=== PATIENT | female | born 1955 | race Caucasian/White ===

== ENCOUNTER 2016-07-17 05:52 | Inpatient (IN) | payer OTHER ==
[2016-07-14 09:24] LABS: HEMOGLOBIN 13.2 g/dL (11.7-16.4)
[2016-07-14 09:37] LABS: ASPARTATE AMINO TRANSFERASE 66 U/L (15-37); BLOOD UREA NITROGEN 12 mg/dL (7-18)
[~2016-07-17] VITALS: Ht 162.6 cm; Wt 105.8 kg
[2016-07-17] VITALS (8 sets, daily range): BP systolic 83–136; BP diastolic 51–86
[~2016-07-17 05:52] MED LIST: AMIT10TA PO; ASPI-621 PO; ATEN50TA41 PO; ATOR40TA78 PO; CEFD300C2 PO; CLOP75TA22 PO; DAPA5TAB PO; GABA600T2 PO; HEPARIN 1,000 UNITS/ML, 30ML ONE; HYDR-3240 PO; HYDR-3241 PO; IBUP-1222 PO; LOSA50TA6 PO; METF10002 PO; SITA100T PO; VALS320T2 PO; VARE1TAB21 PO
[2016-07-17] MEDS ORDERED: LACTATED RINGERS 1,000 ML IV SCH (06:14)
[2016-07-17] MEDS ORDERED: LIDOCAINE 1%, 2ML SQ PRN (06:30)
[2016-07-17] MEDS ORDERED: VANCOMYCIN 1,400 MG in SODIUM CHLORIDE 0.9% 250 ML IV ONE (07:00)
[2016-07-17] MEDS ORDERED: FENTANYL PF 250 MCG/5ML ONE ×2 (07:08→07:09)
[2016-07-17] MEDS ORDERED: MIDAZOLAM 1 MG/ML, 2ML ONE (07:09)
[2016-07-17] MEDS ORDERED: HEPARIN 1,000 UNITS/ML, 10ML ONE ×2 (07:22→10:11)
[2016-07-17] MEDS ORDERED: PROTAMINE SULFATE 10 MG/ML, 5ML ONE ×2 (07:22→07:59)
[2016-07-17] MEDS ORDERED: BACITRACIN 50,000 UNIT ONE (07:23)
[2016-07-17] MEDS ORDERED: THROMBIN 20,000 UNIT VIAL TP ONE (07:23)
[2016-07-17] MEDS ORDERED: ONDANSETRON 2MG/ML, 2ML ONE (07:42)
[2016-07-17] MEDS ORDERED: PROPOFOL 10 MG/ML, 50ML ONE (07:42)
[2016-07-17] MEDS ORDERED: DEXAMETHASONE 4 MG/ML, 5ML ONE (07:42)
[2016-07-17] MEDS ORDERED: GLYCOPYRROLATE 0.2MG/1ML ONE (07:42)
[2016-07-17] MEDS ORDERED: NEOSTIGMINE 1 MG/ML, 10ML ONE (07:42)
[2016-07-17] MEDS ORDERED: SODIUM BICARB 8.4%, 50ML SYRINGE ONE (07:42)
[2016-07-17] MEDS ORDERED: ROCURONIUM 10 MG/ML ONE (07:42)
[2016-07-17] MEDS ORDERED: INSULIN SINGLE DOSE, ER SQ-INSULIN ONE (07:42)
[2016-07-17] MEDS ORDERED: ALBUMIN HUMAN 5%, 25G/500ML ONE (07:42)
[2016-07-17] MEDS ORDERED: LIDOCAINE/MPF 2%-EPI 1:200K, 20 ML ONE (07:59)
[2016-07-17] MEDS ORDERED: REGULAR INSULIN 62.5 UNITS in SODIUM CHLORIDE 0.9% 249.375 ML IV PRN (09:00)
[2016-07-17] MEDS ORDERED: HYDROmorphone 1 MG/ML, 1ML ONE (09:14)
[2016-07-17] MEDS ORDERED: POTASSIUM PHOS 4.4 MEQ/ML IV STA (10:48)
[2016-07-17] MEDS ORDERED: MEPERIDINE/PF 25MG/0.5ML IVPush PRN (11:00)
[2016-07-17] MEDS ORDERED: PROMETHAZINE 25 MG/ML, 1ML IV PRN (11:00)
[2016-07-17] MEDS ORDERED: FENTANYL PF 100 MCG/2ML IV PRN (11:00)
[2016-07-17] MEDS ORDERED: ALBUTEROL SULFATE 2.5 MG/3 ML NPPB PRN (11:00)
[2016-07-17] MEDS ORDERED: LABETALOL 5MG/ML, 20ML IV PRN (11:00)
[2016-07-17] MEDS ORDERED: ONDANSETRON 2MG/ML, 2ML IVPush PRN (11:00)
[2016-07-17] MEDS ORDERED: OXYcodone 5 MG/5 ML ORAL.SOL UDC PO PRN (11:00)
[2016-07-17] MEDS ORDERED: HYDROmorphone 1 MG/ML, 1ML IV PRN (11:00)
[2016-07-17] MEDS ORDERED: ACETAMINOPHEN 325 MG TABLET PO PRN (11:00)
[2016-07-17] MEDS ORDERED: MIDAZOLAM 1 MG/ML, 2ML IV PRN (11:00)
[2016-07-17] MEDS ORDERED: hydrALAzine 20 MG/ML, 1ML IV PRN ×2 (11:00→16:00)
[2016-07-17] MEDS ORDERED: POTASSIUM PHOSPHATE IV ONE (11:30)
[2016-07-17] MEDS ORDERED: SODIUM CHLORIDE 0.9% IV ONE (11:30)
[2016-07-17] MEDS: BUPIVACAINE/PF 0.5%, 30ML 62.5 ML in SODIUM CHLORIDE 0.9% 187.5 ML EPIDCONT SCH (11:45)
[2016-07-17] MEDS ORDERED: HEPARIN 1,000 UNITS/ML, 30ML ONE (11:50)
[2016-07-17] MEDS: LACTATED RINGERS 1,000 ML IV SCH (16:00)
[2016-07-17] MEDS ORDERED: LABETALOL 5MG/ML, 20ML IVPush PRN ×2 (16:00)
[2016-07-17 16:17] LABS: HEMOGLOBIN 11.5 g/dL (11.7-16.4)
[2016-07-17] MEDS: ENALAPRILAT 1.25 MG/ML, 2ML IV SCH ×2 (16:17→22:05)
[2016-07-17 16:21] LABS: BLOOD UREA NITROGEN 7 mg/dL (7-18)
[2016-07-17] MEDS ORDERED: NALBUPHINE 10 MG/ML, 1ML IV PRN (16:30)
[2016-07-17] MEDS ORDERED: NALOXONE 0.4 MG/ML, 1ML IV PRN ×2 (16:30)
[2016-07-17] MEDS ORDERED: METOCLOPRAMIDE 5 MG/ML, 2ML IV PRN (16:30)
[2016-07-17] MEDS ORDERED: FENTANYL PF 100 MCG/2ML EPIDPUSH PRN (16:30)
[2016-07-17] MEDS ORDERED: HYDROmorphone 1 MG/ML, 1ML EPIDPUSH SCH (16:30)
[2016-07-17] MEDS ORDERED: EPHEDRINE 50 MG/ML, 1ML IVPush PRN (16:30)
[2016-07-17] MEDS ORDERED: DO NOT GIVE MC SCH (16:30)
[2016-07-17] MEDS ORDERED: DO NOT GIVE XX SCH (16:30)
[2016-07-17] MEDS: HYDROmorphone 1 MG/ML, 1ML EPIDPUSH SCH (17:04)
[2016-07-17] MEDS: PIPERACILLIN/TAZO/PMX 3.375GM 50 ML IV SCH (17:48)
[2016-07-17] MEDS: HEPARIN 5,000 UNITS/ML, 1ML SQ SCH (18:11)
[2016-07-17] MEDS: METOPROLOL 1 MG/ML, 5ML IVPush SCH ×2 (19:45→23:54)
[2016-07-17] MEDS ORDERED: VANCOMYCIN 1,300 MG in SODIUM CHLORIDE 0.9% 250 ML IV ONE (20:00)
[2016-07-17] MEDS ORDERED: LACTATED RINGERS 500 ML IVBOLUS ONE (21:00)
[2016-07-17] MEDS: INSULIN REGULAR, HUMAN 100 UNITS/ML, 3ML MEDIUM DOSE SS SQ-INSULIN SCH (22:04)
[2016-07-18] VITALS (9 sets, daily range): BP systolic 90–114; BP diastolic 57–75
[2016-07-18] MEDS ORDERED: LACTATED RINGERS 500 ML IVBOLUS ONE (00:30)
[2016-07-18] MEDS ORDERED: SODIUM CHLORIDE 0.9% 1,000ML IVBOLUS ONE (00:30)
[2016-07-18] MEDS: PIPERACILLIN/TAZO/PMX 3.375GM 50 ML IV SCH ×4 (00:36→18:14)
[2016-07-18] MEDS: LACTATED RINGERS 1,000 ML IV SCH ×3 (01:36→17:19)
[2016-07-18 03:37] LABS: BLOOD UREA NITROGEN 12 mg/dL (7-18)
[2016-07-18] MEDS: ENALAPRILAT 1.25 MG/ML, 2ML IV SCH ×4 (03:44→22:53)
[2016-07-18] MEDS: HYDROmorphone 1 MG/ML, 1ML EPIDPUSH SCH ×2 (05:14→17:38)
[2016-07-18] MEDS: METOPROLOL 1 MG/ML, 5ML IVPush SCH ×3 (06:07→18:00)
[2016-07-18] MEDS: HEPARIN 5,000 UNITS/ML, 1ML SQ SCH ×2 (06:08→18:15)
[2016-07-18] MEDS: INSULIN REGULAR, HUMAN 100 UNITS/ML, 3ML MEDIUM DOSE SS SQ-INSULIN SCH (07:00)
[2016-07-18] MEDS: INSULIN REGULAR 100 UNITS/ML, 3ML VIAL SQ-INSULIN SCH ×3 (09:25→21:29)
[2016-07-18] MEDS ORDERED: SODIUM CHLORIDE 0.9%, 500ML IVBOLUS ONE (11:00)
[2016-07-18] MEDS: BUPIVACAINE/PF 0.5%, 30ML 62.5 ML in SODIUM CHLORIDE 0.9% 187.5 ML EPIDCONT SCH (11:52)
[2016-07-19] VITALS (7 sets, daily range): BP systolic 93–136; BP diastolic 61–82
[2016-07-19] MEDS: PIPERACILLIN/TAZO/PMX 3.375GM 50 ML IV SCH ×3 (00:58→12:45)
[2016-07-19] MEDS: LACTATED RINGERS 1,000 ML IV SCH ×2 (01:49→10:14)
[2016-07-19] MEDS: ENALAPRILAT 1.25 MG/ML, 2ML IV SCH ×2 (04:54→10:00)
[2016-07-19] MEDS: INSULIN REGULAR 100 UNITS/ML, 3ML VIAL SQ-INSULIN SCH ×4 (04:55→23:25)
[2016-07-19] MEDS: HYDROmorphone 1 MG/ML, 1ML EPIDPUSH SCH (04:55)
[2016-07-19] MEDS: METOPROLOL 1 MG/ML, 5ML IVPush SCH ×3 (06:00→12:45)
[2016-07-19 06:21] LABS: HEMOGLOBIN 8.9 g/dL (11.7-16.4)
[2016-07-19] MEDS: HEPARIN 5,000 UNITS/ML, 1ML SQ SCH ×2 (06:32→18:30)
[2016-07-19 07:01] LABS: BLOOD UREA NITROGEN 22 mg/dL (7-18)
[2016-07-19] MEDS ORDERED: BUPIVACAINE/PF 0.5%, 30ML 62.5 ML in SODIUM CHLORIDE 0.9% 187.5 ML EPIDCONT SCH (12:00)
[2016-07-19 13:19] LABS: HIT LOT CART23704/KIT23705
[2016-07-19] MEDS ORDERED: SODIUM CHLORIDE 0.9% 1,000 ML IV SCH (13:30)
[2016-07-19 14:29] LABS: HIT OBC PASS; HIT RESULT NEGATIVE (NEGATIVE)
[2016-07-19] MEDS: SODIUM BICARB IV SCH (18:27)
[2016-07-19] MEDS: POTASSIUM CHLORIDE IV SCH (18:27)
[2016-07-19] MEDS: [UNRECOGNIZED DRUG - OTHER] IV SCH (18:27)
[2016-07-20 03:51] VITALS: BP 145/90
[2016-07-20] MEDS: [UNRECOGNIZED DRUG - OTHER] IV SCH ×2 (04:36→16:25)
[2016-07-20] MEDS: SODIUM BICARB IV SCH ×2 (04:36→16:25)
[2016-07-20] MEDS: POTASSIUM CHLORIDE IV SCH ×2 (04:36→16:25)
[2016-07-20] MEDS: INSULIN REGULAR 100 UNITS/ML, 3ML VIAL SQ-INSULIN SCH ×4 (04:37→22:10)
[2016-07-20 06:07] LABS: HEMOGLOBIN 10.4 g/dL (11.7-16.4)
[2016-07-20 06:26] LABS: BLOOD UREA NITROGEN 24 mg/dL (7-18)
[2016-07-20] MEDS: HEPARIN 5,000 UNITS/ML, 1ML SQ SCH ×2 (06:41→18:28)
[2016-07-20 07:46] VITALS: BP 143/91
[2016-07-20 14:00] VITALS: BP 161/94
[2016-07-20] MEDS: ONDANSETRON 2MG/ML, 2ML IV PRN (18:28)
[2016-07-20 19:10] VITALS: BP 158/97
[2016-07-20] MEDS: ATORVASTATIN 40 MG TABLET PO SCH (22:03)
[2016-07-21] MEDS: ONDANSETRON 2MG/ML, 2ML IV PRN (00:01)
[2016-07-21] MEDS: [UNRECOGNIZED DRUG - OTHER] IV SCH (03:05)
[2016-07-21] MEDS: SODIUM BICARB IV SCH (03:05)
[2016-07-21] MEDS: POTASSIUM CHLORIDE IV SCH (03:05)
[2016-07-21] MEDS: INSULIN REGULAR 100 UNITS/ML, 3ML VIAL SQ-INSULIN SCH ×4 (03:12→21:09)
[2016-07-21 05:19] LABS: HEMOGLOBIN 10.5 g/dL (11.7-16.4)
[2016-07-21 05:23] LABS: BLOOD UREA NITROGEN 25 mg/dL (7-18)
[2016-07-21 05:36] VITALS: BP 153/87
[2016-07-21] MEDS: ASPIRIN 81 MG TABLET EC PO SCH (05:38)
[2016-07-21] MEDS: ATENOLOL 50 MG TABLET PO SCH (05:38)
[2016-07-21] MEDS: HEPARIN 5,000 UNITS/ML, 1ML SQ SCH ×2 (05:38→17:31)
[2016-07-21 06:59] VITALS: BP 150/91
[2016-07-21] MEDS: CLOPIDOGREL 75 MG TABLET PO SCH (09:54)
[2016-07-21 13:29] VITALS: BP 147/83
[2016-07-21] MEDS: HYDROcodone/APAP 5/325 TABLET PO PRN (17:31)
[2016-07-21 19:46] VITALS: BP 134/84
[2016-07-21] MEDS: ATORVASTATIN 40 MG TABLET PO SCH (20:40)
[2016-07-21] MEDS: SENNA/DOCUSATE TABLET PO SCH (21:00)
[2016-07-22 03:30] VITALS: BP 129/82
[2016-07-22 05:23] LABS: HEMOGLOBIN 10.3 g/dL (11.7-16.4)
[2016-07-22 05:38] LABS: BLOOD UREA NITROGEN 25 mg/dL (7-18)
[2016-07-22] MEDS: ATENOLOL 50 MG TABLET PO SCH (06:06)
[2016-07-22] MEDS: HEPARIN 5,000 UNITS/ML, 1ML SQ SCH (06:07)
[2016-07-22] MEDS: ASPIRIN 81 MG TABLET EC PO SCH (06:07)
[2016-07-22 07:30] VITALS: BP 142/89
[2016-07-22] MEDS: INSULIN REGULAR 100 UNITS/ML, 3ML VIAL SQ-INSULIN SCH ×2 (07:50→12:15)
[2016-07-22] MEDS: CLOPIDOGREL 75 MG TABLET PO SCH (07:50)
[2016-07-22] MEDS: SENNA/DOCUSATE TABLET PO SCH (09:00)
[2016-07-22] MEDS: HYDROcodone/APAP 5/325 TABLET PO PRN (11:21)
[2016-07-22 13:20] VITALS: BP 143/91
[2016-07-22] MEDS ORDERED: HYDR-3241 PO (14:25)
[2016-07-22] MEDS ORDERED: CLOP75TA22 PO (14:27)
[2016-07-22] MEDS ORDERED: SENN-25 PO (14:27)
== END 2016-07-22 15:25 | disposition home or self-care (01) | DRG 269 ==
LOC: ORIP 05:52 → 4NOR 15:06 → 4EST 18:36 → 4NOR 07-18 12:54
PROVIDERS: ADMIT Surgery; ATTEND Surgery
PROC: 04C00ZZ Extirpation of Matter from Abdominal Aorta, Open Approach (ICD-10-PCS; 2016-07-17)
PROC: 04CL0ZZ Extirpation of Matter from Left Femoral Artery, Open Approach (ICD-10-PCS; 2016-07-17)
PROC: 04PY0JZ Removal of Synthetic Substitute from Lower Artery, Open Approach (ICD-10-PCS; 2016-07-17)
PROC: 04100JK Bypass Abdominal Aorta to Bilateral Femoral Arteries with Synthetic Substitute, Open Approach (ICD-10-PCS; principal; 2016-07-17 07:30)
PROC: 30233N1 Transfusion of Nonautologous Red Blood Cells into Peripheral Vein, Percutaneous Approach (ICD-10-PCS; 2016-07-19)
PROC: 0T9B70Z Drainage of Bladder with Drainage Device, Via Natural or Artificial Opening (ICD-10-PCS; 2016-07-19)
DX: T82.9XXA Unspecified complication of cardiac and vascular prosthetic device, implant and graft, initial encounter (principal); I74.09 Other arterial embolism and thrombosis of abdominal aorta; I74.5 Embolism and thrombosis of iliac artery; E87.2 Acidosis; N17.9 Acute kidney failure, unspecified; N39.0 Urinary tract infection, site not specified; Z68.41 Body mass index [BMI] 40.0-44.9, adult; D64.9 Anemia, unspecified; D69.6 Thrombocytopenia, unspecified; E66.9 Obesity, unspecified; E11.51 Type 2 diabetes mellitus with diabetic peripheral angiopathy without gangrene; I95.9 Hypotension, unspecified; E78.5 Hyperlipidemia, unspecified; I10 Essential (primary) hypertension; Z82.49 Family history of ischemic heart disease and other diseases of the circulatory system; Z87.891 Personal history of nicotine dependence; Z83.3 Family history of diabetes mellitus; Z91.018 Allergy to other foods
CPT/HCPCS: 36415; 74000; 76770; 80048; 80053; 81001; 82330; 82550; 82570; 82803; 82947; 82962; 83615; 84132; 84156; 84295; 84300; 85014; 85025; 86022; 86850; 86900; 86923; 87077; 87086; 87186; 93005; C1768; J1100; J1170; J1644; J1815; J2250; J2270; J2405; J2543; J2704; J2710; J2720; J3010; J3370; J3480; J3490; J7120; P9045; C1765; J7030; J7040; J7050; P9016

== ENCOUNTER 2016-08-08 14:19 | Inpatient (IN) | payer OTHER ==
[~2016-08-08] VITALS: Ht 162.6 cm; Wt 87.4 kg
[~2016-08-08 14:19] MED LIST changes: -CEFD300C2 PO; +CEFD300C37 PO; -HEPARIN 1,000 UNITS/ML, 30ML ONE; +SENN-25 PO
[2016-08-08] MEDS ORDERED: SODIUM CHLORIDE 0.9% 1,000 ML IV ONE (15:40)
[2016-08-08] MEDS ORDERED: MORPHINE SULFATE 4 MG/ML, 1ML IV PRN (16:00)
[2016-08-08] MEDS ORDERED: SODIUM CHLORIDE FLUSH 10ML SYR IVF ONE (16:00)
[2016-08-08] MEDS ORDERED: AMPICILLIN/SULBACTAM 3 GM in SODIUM CHLORIDE 0.9% 100 ML IVPB ONE (16:00)
[2016-08-08] MEDS ORDERED: ONDANSETRON 2MG/ML, 2ML IVPush ONE (16:00)
[2016-08-08 16:28] LABS: ASPARTATE AMINO TRANSFERASE 43 U/L (15-37); BLOOD UREA NITROGEN 12 mg/dL (7-18)
[2016-08-08] MEDS ORDERED: DULA0.75 SQ (16:36)
[2016-08-08] MEDS ORDERED: ATEN50TA41 PO (16:36)
[2016-08-08 16:58] LABS: DIFF TOTAL CELLS COUNTED 100 CELL DIFF
[2016-08-08] MEDS ORDERED: VANCOMYCIN PER PHARMACY MC ONE (17:00)
[2016-08-08] MEDS ORDERED: VANCOMYCIN 1,400 MG in SODIUM CHLORIDE 0.9% 250 ML IV ONE (17:00)
[2016-08-08] MEDS ORDERED: SODIUM CHLORIDE FLUSH 10ML SYR IVF PRN (17:00)
[2016-08-08 17:06] LABS: ANISOCYTOSIS 1+; POIKILOCYTOSIS 1+; POLYCHROMASIA 1+
[2016-08-08 17:07] LABS: LARGE PLATELETS 1+; VERIFY COUNTS? YES
[2016-08-08] MEDS ORDERED: ACETAMINOPHEN 325 MG TABLET PO PRN (18:00)
[2016-08-08] MEDS ORDERED: POLYETHYLENE GLYCOL 17 GM PACKET PO PRN (18:00)
[2016-08-08] MEDS ORDERED: BISACODYL 10 MG SUPP PR PRN (18:00)
[2016-08-08] MEDS ORDERED: ONDANSETRON 2MG/ML, 2ML IVP PRN (18:00)
[2016-08-08] MEDS ORDERED: ZOLPIDEM 5MG TABLET PO PRN (18:00)
[2016-08-08] MEDS ORDERED: DOCUSATE 100 MG CAPSULE PO PRN (18:00)
[2016-08-08] MEDS: LACTATED RINGERS 1,000 ML IV SCH (18:05)
[2016-08-08 20:00] VITALS: BP 152/81
[2016-08-08 20:32] LABS: PATH.CAST-FLAG NOT PRESENT; SPERM-FLAG NOT PRESENT; SRC-FLAG NOT PRESENT; XTAL-FLAG NOT PRESENT; YLC-FLAG NOT PRESENT
[2016-08-08] MEDS: ATORVASTATIN 40 MG TABLET PO SCH (21:00)
[2016-08-08] MEDS ORDERED: ATENOLOL 50 MG TABLET PO SCH (21:00)
[2016-08-08] MEDS: SENNA/DOCUSATE TABLET PO SCH (21:00)
[2016-08-08] MEDS: AMITRIPTYLINE 10 MG TABLET PO SCH (22:30)
[2016-08-08] MEDS: INSULIN REGULAR 100 UNITS/ML, 3ML VIAL SQ-INSULIN SCH (22:45)
[2016-08-08] MEDS: CEFTAROLINE 600 MG in SODIUM CHLORIDE 0.9% 100 ML IV SCH (23:00)
[2016-08-09 03:39] VITALS: BP 154/84
[2016-08-09] MEDS: LACTATED RINGERS 1,000 ML IV SCH (03:46)
[2016-08-09 06:21] LABS: BLOOD UREA NITROGEN 9 mg/dL (7-18)
[2016-08-09 06:41] VITALS: BP 149/82
[2016-08-09] MEDS ORDERED: CLOPIDOGREL 75 MG TABLET PO SCH (09:00)
[2016-08-09] MEDS: SENNA/DOCUSATE TABLET PO SCH ×2 (09:00→20:13)
[2016-08-09] MEDS ORDERED: ASPIRIN 81 MG TABLET EC PO SCH (09:00)
[2016-08-09] MEDS: ATENOLOL 50 MG TABLET PO SCH (09:40)
[2016-08-09] MEDS: INSULIN REGULAR 100 UNITS/ML, 3ML VIAL SQ-INSULIN SCH ×4 (09:41→20:35)
[2016-08-09] MEDS: MORPHINE SULFATE 4 MG/ML, 1ML IVPush PRN (10:23)
[2016-08-09] MEDS: POTASSIUM CHLORIDE 20 MEQ in LACTATED RINGERS 1,000 ML IV SCH ×2 (10:50→20:13)
[2016-08-09] MEDS: CEFTAROLINE 600 MG in SODIUM CHLORIDE 0.9% 100 ML IV SCH ×2 (10:51→23:28)
[2016-08-09] MEDS ORDERED: HEPARIN 5,000 UNITS/ML, 1ML ONE (12:43)
[2016-08-09] MEDS ORDERED: HEPARIN 1,000 UNITS/ML, 30ML ONE (12:43)
[2016-08-09] MEDS ORDERED: BACITRACIN 50,000 UNIT ONE (12:44)
[2016-08-09] MEDS ORDERED: PROTAMINE SULFATE 10 MG/ML, 5ML ONE (12:44)
[2016-08-09] MEDS ORDERED: BUPIVACAINE/PF-EPI 0.25% 1:200K ONE (12:44)
[2016-08-09] MEDS ORDERED: THROMBIN 20,000 UNIT VIAL TP ONE (12:44)
[2016-08-09] MEDS ORDERED: FENTANYL PF 250 MCG/5ML ONE (13:45)
[2016-08-09] MEDS ORDERED: MIDAZOLAM 1 MG/ML, 2ML ONE (13:46)
[2016-08-09] MEDS ORDERED: HYDROmorphone 1 MG/ML, 1ML IV PRN (14:00)
[2016-08-09] MEDS ORDERED: OXYcodone 5 MG/5 ML ORAL.SOL UDC PO PRN (14:00)
[2016-08-09] MEDS ORDERED: MEPERIDINE/PF 25MG/0.5ML IVPush PRN (14:00)
[2016-08-09] MEDS ORDERED: ACETAMINOPHEN 325 MG TABLET PO PRN (14:00)
[2016-08-09] MEDS ORDERED: hydrALAzine 20 MG/ML, 1ML IV PRN (14:00)
[2016-08-09] MEDS ORDERED: LABETALOL 5MG/ML, 20ML IV PRN (14:00)
[2016-08-09] MEDS ORDERED: PROMETHAZINE 25 MG/ML, 1ML IV PRN (14:00)
[2016-08-09] MEDS ORDERED: ONDANSETRON 2MG/ML, 2ML IVPush PRN (14:00)
[2016-08-09] MEDS ORDERED: HALOPERIDOL 5 MG/ML IV PRN (14:00)
[2016-08-09] MEDS ORDERED: FENTANYL PF 100 MCG/2ML IV PRN (14:00)
[2016-08-09] MEDS ORDERED: HYDROmorphone 1 MG/ML, 1ML ONE (14:29)
[2016-08-09] MEDS ORDERED: HYDROmorphone 2 MG/ML, 1ML ONE (14:50)
[2016-08-09] MEDS ORDERED: FENTANYL PF 100 MCG/2ML ONE (14:50)
[2016-08-09] MEDS ORDERED: ONDANSETRON 2MG/ML, 2ML ONE (14:50)
[2016-08-09] MEDS ORDERED: PHENYLEPHRINE 10 MG/ML ONE (15:26)
[2016-08-09] MEDS ORDERED: KETOROLAC 30 MG/1 ML ONE (15:26)
[2016-08-09] MEDS ORDERED: SUCCINYLCHOLINE 20 MG/ML, 10ML ONE (15:26)
[2016-08-09] MEDS ORDERED: PROPOFOL 10 MG/ML, 20ML ONE (15:26)
[2016-08-09 16:05] VITALS: BP 108/71
[2016-08-09] MEDS: HEPARIN 5,000 UNITS/ML, 1ML SQ SCH ×2 (16:31→23:27)
[2016-08-09 19:45] VITALS: BP 132/82
[2016-08-09] MEDS: ATORVASTATIN 40 MG TABLET PO SCH (20:13)
[2016-08-09] MEDS: OXYcodone IR 5MG TABLET PO PRN (20:13)
[2016-08-09] MEDS: AMITRIPTYLINE 10 MG TABLET PO SCH (20:13)
[2016-08-09 23:21] VITALS: BP 136/81
[2016-08-10] MEDS: OXYcodone IR 5MG TABLET PO PRN ×5 (02:21→23:27)
[2016-08-10 03:54] VITALS: BP 116/68
[2016-08-10] MEDS: POTASSIUM CHLORIDE 20 MEQ in LACTATED RINGERS 1,000 ML IV SCH (03:57)
[2016-08-10 05:04] LABS: BLOOD UREA NITROGEN 10 mg/dL (7-18)
[2016-08-10] MEDS: INSULIN REGULAR 100 UNITS/ML, 3ML VIAL SQ-INSULIN SCH ×4 (07:00→21:23)
[2016-08-10 07:11] VITALS: BP 133/78
[2016-08-10] MEDS: HEPARIN 5,000 UNITS/ML, 1ML SQ SCH ×3 (09:17→23:29)
[2016-08-10] MEDS: CLOPIDOGREL 75 MG TABLET PO SCH (09:18)
[2016-08-10] MEDS: ASPIRIN 81 MG TABLET EC PO SCH (09:18)
[2016-08-10] MEDS: ATENOLOL 50 MG TABLET PO SCH ×2 (09:18→21:19)
[2016-08-10] MEDS: SENNA/DOCUSATE TABLET PO SCH ×2 (09:18→21:24)
[2016-08-10] MEDS: POTASSIUM CHLORIDE 10 MEQ in SODIUM CHLORIDE 0.9% 1,000 ML IV SCH ×2 (09:51→18:47)
[2016-08-10] MEDS: CEFTAROLINE 600 MG in SODIUM CHLORIDE 0.9% 100 ML IV SCH ×2 (11:14→23:26)
[2016-08-10 13:30] VITALS: BP 149/79
[2016-08-10 19:55] VITALS: BP 154/73
[2016-08-10] MEDS: AMITRIPTYLINE 10 MG TABLET PO SCH (21:19)
[2016-08-10] MEDS: ATORVASTATIN 40 MG TABLET PO SCH (21:19)
[2016-08-11] MEDS: OXYcodone IR 5MG TABLET PO PRN (00:08)
[2016-08-11 02:21] VITALS: BP 159/79
[2016-08-11 05:15] LABS: BLOOD UREA NITROGEN 6 mg/dL (7-18)
[2016-08-11] MEDS: INSULIN REGULAR 100 UNITS/ML, 3ML VIAL SQ-INSULIN SCH ×4 (07:00→21:31)
[2016-08-11 07:37] VITALS: BP 166/78
[2016-08-11] MEDS ORDERED: metFORMIN 500 MG TABLET PO SCH (08:00)
[2016-08-11] MEDS: SENNA/DOCUSATE TABLET PO SCH ×2 (08:30→21:36)
[2016-08-11] MEDS: ATENOLOL 50 MG TABLET PO SCH ×2 (08:31→21:35)
[2016-08-11] MEDS: HEPARIN 5,000 UNITS/ML, 1ML SQ SCH ×2 (08:31→16:41)
[2016-08-11] MEDS: CLOPIDOGREL 75 MG TABLET PO SCH (08:31)
[2016-08-11] MEDS: ASPIRIN 81 MG TABLET EC PO SCH (08:32)
[2016-08-11] MEDS ORDERED: CHOLECALCIFEROL 1,000 UNIT TABLET PO SCH (09:00)
[2016-08-11] MEDS: DAPTOMYCIN 550 MG in SODIUM CHLORIDE 0.9% 100 ML IV SCH (11:05)
[2016-08-11] MEDS: RIFAMPIN 300 MG CAPSULE PO SCH (11:08)
[2016-08-11 14:38] VITALS: BP 170/81
[2016-08-11 19:30] VITALS: BP 144/79
[2016-08-11] MEDS: AMITRIPTYLINE 10 MG TABLET PO SCH (21:35)
[2016-08-12] MEDS: HEPARIN 5,000 UNITS/ML, 1ML SQ SCH ×3 (00:32→16:53)
[2016-08-12 01:18] VITALS: BP 161/83
[2016-08-12] MEDS: OXYcodone IR 5MG TABLET PO PRN (05:07)
[2016-08-12] MEDS: INSULIN REGULAR 100 UNITS/ML, 3ML VIAL SQ-INSULIN SCH ×4 (07:50→21:24)
[2016-08-12 08:28] VITALS: BP 174/80
[2016-08-12] MEDS: CLOPIDOGREL 75 MG TABLET PO SCH (09:33)
[2016-08-12] MEDS: ATENOLOL 50 MG TABLET PO SCH ×2 (09:33→21:23)
[2016-08-12] MEDS: ASPIRIN 81 MG TABLET EC PO SCH (09:33)
[2016-08-12] MEDS: SENNA/DOCUSATE TABLET PO SCH ×2 (09:33→21:23)
[2016-08-12] MEDS: RIFAMPIN 300 MG CAPSULE PO SCH (09:33)
[2016-08-12] MEDS: DAPTOMYCIN 550 MG in SODIUM CHLORIDE 0.9% 100 ML IV SCH (11:40)
[2016-08-12 13:39] VITALS: BP 181/83
[2016-08-12 19:47] VITALS: BP 159/88
[2016-08-12] MEDS: AMITRIPTYLINE 10 MG TABLET PO SCH (21:23)
[2016-08-13] MEDS: HEPARIN 5,000 UNITS/ML, 1ML SQ SCH ×3 (00:10→16:46)
[2016-08-13 01:20] VITALS: BP 155/74
[2016-08-13] MEDS: OXYcodone IR 5MG TABLET PO PRN ×2 (05:19→11:37)
[2016-08-13] MEDS: INSULIN REGULAR 100 UNITS/ML, 3ML VIAL SQ-INSULIN SCH ×4 (06:46→20:34)
[2016-08-13] MEDS: SENNA/DOCUSATE TABLET PO SCH ×2 (08:21→20:34)
[2016-08-13 08:22] VITALS: BP 159/76
[2016-08-13] MEDS: CLOPIDOGREL 75 MG TABLET PO SCH (08:24)
[2016-08-13] MEDS: ASPIRIN 81 MG TABLET EC PO SCH (08:25)
[2016-08-13] MEDS: ATENOLOL 50 MG TABLET PO SCH ×2 (08:25→20:34)
[2016-08-13] MEDS: RIFAMPIN 300 MG CAPSULE PO SCH (08:25)
[2016-08-13] MEDS: DAPTOMYCIN 550 MG in SODIUM CHLORIDE 0.9% 100 ML IV SCH (12:15)
[2016-08-13 15:05] VITALS: BP 142/68
[2016-08-13 20:08] VITALS: BP 143/70
[2016-08-13] MEDS: AMITRIPTYLINE 10 MG TABLET PO SCH (20:33)
[2016-08-14] MEDS: HEPARIN 5,000 UNITS/ML, 1ML SQ SCH ×4 (00:45→20:18)
[2016-08-14 04:34] VITALS: BP 163/93
[2016-08-14 05:07] LABS: BLOOD UREA NITROGEN 2 mg/dL (7-18)
[2016-08-14 05:17] LABS: ASPARTATE AMINO TRANSFERASE 25 U/L (15-37)
[2016-08-14] MEDS: INSULIN REGULAR 100 UNITS/ML, 3ML VIAL SQ-INSULIN SCH ×4 (06:26→20:17)
[2016-08-14] MEDS ORDERED: POTASSIUM CHLORIDE 20 MEQ TAB.ER.PRT PO ONE (07:00)
[2016-08-14 07:30] VITALS: BP 145/86
[2016-08-14] MEDS: RIFAMPIN 300 MG CAPSULE PO SCH (08:59)
[2016-08-14] MEDS: CLOPIDOGREL 75 MG TABLET PO SCH (08:59)
[2016-08-14] MEDS: ASPIRIN 81 MG TABLET EC PO SCH (08:59)
[2016-08-14] MEDS: ATENOLOL 50 MG TABLET PO SCH ×2 (09:00→20:17)
[2016-08-14] MEDS: SENNA/DOCUSATE TABLET PO SCH ×2 (09:01→20:17)
[2016-08-14] MEDS ORDERED: OXYC5TAB3 PO (10:42)
[2016-08-14] MEDS: DAPTOMYCIN 550 MG in SODIUM CHLORIDE 0.9% 100 ML IV SCH (12:57)
[2016-08-14] MEDS: OXYcodone IR 5MG TABLET PO PRN (13:14)
[2016-08-14 13:57] VITALS: BP 154/78
[2016-08-14 19:45] VITALS: BP 147/80
[2016-08-14] MEDS: AMITRIPTYLINE 10 MG TABLET PO SCH (20:17)
[2016-08-15 03:18] VITALS: BP 147/84
[2016-08-15] MEDS: INSULIN REGULAR 100 UNITS/ML, 3ML VIAL SQ-INSULIN SCH ×4 (06:45→20:30)
[2016-08-15 07:33] VITALS: BP 175/85
[2016-08-15] MEDS: HEPARIN 5,000 UNITS/ML, 1ML SQ SCH ×3 (08:00→23:33)
[2016-08-15] MEDS: ASPIRIN 81 MG TABLET EC PO SCH (08:09)
[2016-08-15] MEDS: CLOPIDOGREL 75 MG TABLET PO SCH (08:09)
[2016-08-15] MEDS: SENNA/DOCUSATE TABLET PO SCH ×2 (08:10→20:37)
[2016-08-15] MEDS: ATENOLOL 50 MG TABLET PO SCH ×2 (08:11→20:37)
[2016-08-15] MEDS: RIFAMPIN 300 MG CAPSULE PO SCH (08:11)
[2016-08-15] MEDS ORDERED: FENTANYL PF 250 MCG/5ML ONE (12:03)
[2016-08-15] MEDS ORDERED: MIDAZOLAM 1 MG/ML, 2ML ONE (12:03)
[2016-08-15] MEDS ORDERED: SUGAMMADEX 200 MG/2 ML IVPush ONE (12:20)
[2016-08-15] MEDS ORDERED: ONDANSETRON 2MG/ML, 2ML ONE (12:20)
[2016-08-15] MEDS ORDERED: ESMOLOL 100 MG/10 ML ONE (12:20)
[2016-08-15] MEDS ORDERED: PROPOFOL 10 MG/ML, 20ML ONE (12:20)
[2016-08-15] MEDS ORDERED: ROCURONIUM 10 MG/ML ONE (12:20)
[2016-08-15] MEDS ORDERED: KETOROLAC 30 MG/1 ML IV PRN (13:00)
[2016-08-15] MEDS ORDERED: LABETALOL 5MG/ML, 20ML IV PRN (13:00)
[2016-08-15] MEDS ORDERED: ACETAMINOPHEN 325 MG TABLET PO PRN (13:00)
[2016-08-15] MEDS ORDERED: HYDROcodone/APAP 7.5-325MG/15ML UDC PO PRN (13:00)
[2016-08-15] MEDS ORDERED: MEPERIDINE/PF 25MG/0.5ML IVPush PRN (13:00)
[2016-08-15] MEDS ORDERED: MIDAZOLAM 1 MG/ML, 2ML IV PRN (13:00)
[2016-08-15] MEDS ORDERED: PROMETHAZINE 25 MG/ML, 1ML IV PRN (13:00)
[2016-08-15] MEDS ORDERED: OXYcodone 5 MG/5 ML ORAL.SOL UDC PO PRN (13:00)
[2016-08-15] MEDS ORDERED: hydrALAzine 20 MG/ML, 1ML IV PRN ×2 (13:00→15:30)
[2016-08-15] MEDS ORDERED: HYDROmorphone 1 MG/ML, 1ML IV PRN (13:00)
[2016-08-15] MEDS ORDERED: ONDANSETRON 2MG/ML, 2ML IVPush PRN (13:00)
[2016-08-15] MEDS ORDERED: LABETALOL 20 MG/4 ML ONE (13:12)
[2016-08-15] MEDS ORDERED: FENTANYL PF 100 MCG/2ML ONE (13:12)
[2016-08-15] MEDS: FENTANYL PF 100 MCG/2ML IV PRN ×2 (13:20→13:25)
[2016-08-15] MEDS: DAPTOMYCIN 550 MG in SODIUM CHLORIDE 0.9% 100 ML IV SCH (13:30)
[2016-08-15 14:26] VITALS: BP 165/103
[2016-08-15] MEDS: OXYcodone IR 5MG TABLET PO PRN ×2 (15:23→20:36)
[2016-08-15] MEDS: NYSTATIN TOPICAL POWDER 15GM TP SCH ×2 (16:55→20:37)
[2016-08-15 20:14] VITALS: BP 150/77
[2016-08-15] MEDS: AMITRIPTYLINE 10 MG TABLET PO SCH (20:37)
[2016-08-15 23:38] VITALS: BP 162/80
[2016-08-16 03:12] VITALS: BP 137/75
[2016-08-16] MEDS: INSULIN REGULAR 100 UNITS/ML, 3ML VIAL SQ-INSULIN SCH ×4 (07:00→20:59)
[2016-08-16] MEDS: HEPARIN 5,000 UNITS/ML, 1ML SQ SCH ×2 (07:48→17:20)
[2016-08-16] MEDS: ASPIRIN 81 MG TABLET EC PO SCH (07:50)
[2016-08-16] MEDS: ATENOLOL 50 MG TABLET PO SCH ×2 (07:51→20:59)
[2016-08-16] MEDS: CLOPIDOGREL 75 MG TABLET PO SCH (07:51)
[2016-08-16] MEDS: RIFAMPIN 300 MG CAPSULE PO SCH (07:51)
[2016-08-16] MEDS: SENNA/DOCUSATE TABLET PO SCH ×3 (07:51→21:00)
[2016-08-16] MEDS: NYSTATIN TOPICAL POWDER 15GM TP SCH ×2 (07:52→21:00)
[2016-08-16 08:25] VITALS: BP 148/85
[2016-08-16 12:35] VITALS: BP 156/80
[2016-08-16] MEDS: DAPTOMYCIN 550 MG in SODIUM CHLORIDE 0.9% 100 ML IV SCH (13:55)
[2016-08-16 19:44] VITALS: BP 148/79
[2016-08-16] MEDS: AMITRIPTYLINE 10 MG TABLET PO SCH (20:59)
[2016-08-17] MEDS: HEPARIN 5,000 UNITS/ML, 1ML SQ SCH ×3 (01:15→17:03)
[2016-08-17 02:38] VITALS: BP 122/76
[2016-08-17] MEDS: INSULIN REGULAR 100 UNITS/ML, 3ML VIAL SQ-INSULIN SCH ×4 (06:50→21:00)
[2016-08-17] MEDS: SENNA/DOCUSATE TABLET PO SCH ×2 (09:00→21:00)
[2016-08-17] MEDS: NYSTATIN TOPICAL POWDER 15GM TP SCH ×2 (09:00→21:13)
[2016-08-17 09:28] VITALS: BP 156/86
[2016-08-17] MEDS: ASPIRIN 81 MG TABLET EC PO SCH (09:39)
[2016-08-17] MEDS: CLOPIDOGREL 75 MG TABLET PO SCH (09:39)
[2016-08-17] MEDS: RIFAMPIN 300 MG CAPSULE PO SCH (09:39)
[2016-08-17] MEDS: ATENOLOL 50 MG TABLET PO SCH ×2 (09:40→21:13)
[2016-08-17] MEDS: MORPHINE SULFATE 4 MG/ML, 1ML IVPush PRN (09:48)
[2016-08-17] MEDS ORDERED: CEFAZOLIN PMX 2GM/50ML 50 ML IVPB SCH (10:30)
[2016-08-17] MEDS: CEFAZOLIN PMX 2GM/50ML 50 ML IVPB SCH ×2 (12:04→19:59)
[2016-08-17] MEDS ORDERED: DAPTOMYCIN 550 MG in SODIUM CHLORIDE 0.9% 100 ML IV SCH (13:30)
[2016-08-17 15:09] VITALS: BP 149/82
[2016-08-17 20:52] VITALS: BP 162/74
[2016-08-17] MEDS: AMITRIPTYLINE 10 MG TABLET PO SCH (21:13)
[2016-08-18] MEDS: HEPARIN 5,000 UNITS/ML, 1ML SQ SCH ×3 (00:52→16:56)
[2016-08-18 01:42] VITALS: BP 163/85
[2016-08-18] MEDS: CEFAZOLIN PMX 2GM/50ML 50 ML IVPB SCH ×3 (03:54→20:36)
[2016-08-18] MEDS: INSULIN REGULAR 100 UNITS/ML, 3ML VIAL SQ-INSULIN SCH ×4 (07:00→20:42)
[2016-08-18] MEDS: SENNA/DOCUSATE TABLET PO SCH ×2 (09:00→20:45)
[2016-08-18 09:15] VITALS: BP 151/84
[2016-08-18] MEDS: CLOPIDOGREL 75 MG TABLET PO SCH (09:26)
[2016-08-18] MEDS: RIFAMPIN 300 MG CAPSULE PO SCH (09:26)
[2016-08-18] MEDS: ASPIRIN 81 MG TABLET EC PO SCH (09:26)
[2016-08-18] MEDS: ATENOLOL 50 MG TABLET PO SCH ×2 (09:26→20:44)
[2016-08-18] MEDS: NYSTATIN TOPICAL POWDER 15GM TP SCH ×2 (09:27→20:46)
[2016-08-18 10:03] LABS: BLOOD UREA NITROGEN 6 mg/dL (7-18)
[2016-08-18 13:38] VITALS: BP 143/83
[2016-08-18 19:23] VITALS: BP 164/90
[2016-08-18] MEDS: AMITRIPTYLINE 10 MG TABLET PO SCH (20:45)
[2016-08-19] MEDS: HEPARIN 5,000 UNITS/ML, 1ML SQ SCH ×3 (01:00→15:27)
[2016-08-19 01:21] VITALS: BP 136/76
[2016-08-19] MEDS: CEFAZOLIN PMX 2GM/50ML 50 ML IVPB SCH ×3 (04:01→19:43)
[2016-08-19] MEDS: INSULIN REGULAR 100 UNITS/ML, 3ML VIAL SQ-INSULIN SCH ×4 (07:00→21:00)
[2016-08-19 07:32] VITALS: BP 171/90
[2016-08-19] MEDS: RIFAMPIN 300 MG CAPSULE PO SCH (08:37)
[2016-08-19] MEDS: CLOPIDOGREL 75 MG TABLET PO SCH (08:37)
[2016-08-19] MEDS: SENNA/DOCUSATE TABLET PO SCH ×2 (08:37→20:59)
[2016-08-19] MEDS: ASPIRIN 81 MG TABLET EC PO SCH (08:37)
[2016-08-19] MEDS: MORPHINE SULFATE 4 MG/ML, 1ML IVPush PRN (08:37)
[2016-08-19] MEDS: NYSTATIN TOPICAL POWDER 15GM TP SCH ×2 (08:38→21:01)
[2016-08-19] MEDS: ATENOLOL 50 MG TABLET PO SCH ×2 (08:38→21:00)
[2016-08-19 13:10] VITALS: BP 167/94
[2016-08-19 19:57] VITALS: BP 155/80
[2016-08-19] MEDS: AMITRIPTYLINE 10 MG TABLET PO SCH (21:00)
[2016-08-20] MEDS: HEPARIN 5,000 UNITS/ML, 1ML SQ SCH ×4 (00:58→16:12)
[2016-08-20 01:09] VITALS: BP 125/73
[2016-08-20] MEDS: CEFAZOLIN PMX 2GM/50ML 50 ML IVPB SCH ×3 (04:42→20:21)
[2016-08-20 09:49] VITALS: BP 159/94
[2016-08-20] MEDS: SENNA/DOCUSATE TABLET PO SCH ×2 (10:48→20:28)
[2016-08-20] MEDS ORDERED: BISACODYL 10 MG SUPP PR PRN (11:00)
[2016-08-20] MEDS ORDERED: hydrALAzine 20 MG/ML, 1ML IV PRN (11:00)
[2016-08-20] MEDS ORDERED: OXYcodone IR 5MG TABLET PO PRN (11:00)
[2016-08-20] MEDS ORDERED: MORPHINE SULFATE 4 MG/ML, 1ML IVPush PRN (11:00)
[2016-08-20] MEDS ORDERED: HALOPERIDOL 5 MG/ML IV PRN (11:00)
[2016-08-20] MEDS ORDERED: DOCUSATE 100 MG CAPSULE PO PRN (11:00)
[2016-08-20] MEDS ORDERED: POLYETHYLENE GLYCOL 17 GM PACKET PO PRN (11:00)
[2016-08-20] MEDS ORDERED: ACETAMINOPHEN 325 MG TABLET PO PRN (11:00)
[2016-08-20] MEDS ORDERED: ONDANSETRON 2MG/ML, 2ML IVP PRN (11:00)
[2016-08-20] MEDS ORDERED: HYDROcodone/APAP 7.5-325MG/15ML UDC PO PRN (11:00)
[2016-08-20] MEDS ORDERED: ZOLPIDEM 5MG TABLET PO PRN (11:00)
[2016-08-20] MEDS: ATENOLOL 50 MG TABLET PO SCH ×2 (11:28→20:31)
[2016-08-20] MEDS: ASPIRIN 81 MG TABLET EC PO SCH (11:29)
[2016-08-20] MEDS: CLOPIDOGREL 75 MG TABLET PO SCH (11:29)
[2016-08-20] MEDS: NYSTATIN TOPICAL POWDER 15GM TP SCH ×2 (11:30→20:33)
[2016-08-20] MEDS: ENALAPRIL 5MG TABLET PO SCH (11:30)
[2016-08-20] MEDS: INSULIN REGULAR 100 UNITS/ML, 3ML VIAL SQ-INSULIN SCH ×3 (11:46→21:13)
[2016-08-20] MEDS: RIFAMPIN 300 MG CAPSULE PO SCH (12:27)
[2016-08-20 14:23] VITALS: BP 157/87
[2016-08-20 19:53] VITALS: BP 147/77
[2016-08-20] MEDS ORDERED: AMITRIPTYLINE 10 MG TABLET PO SCH (21:00)
[2016-08-21] MEDS: HEPARIN 5,000 UNITS/ML, 1ML SQ SCH ×2 (03:00→09:02)
[2016-08-21 03:24] VITALS: BP 129/63
[2016-08-21] MEDS: CEFAZOLIN PMX 2GM/50ML 50 ML IVPB SCH ×2 (04:27→11:56)
[2016-08-21 05:08] LABS: ASPARTATE AMINO TRANSFERASE 42 U/L (15-37); BLOOD UREA NITROGEN 8 mg/dL (7-18)
[2016-08-21] MEDS: INSULIN REGULAR 100 UNITS/ML, 3ML VIAL SQ-INSULIN SCH ×2 (07:00→11:08)
[2016-08-21 08:26] VITALS: BP 154/79
[2016-08-21] MEDS: CLOPIDOGREL 75 MG TABLET PO SCH (08:58)
[2016-08-21] MEDS: ASPIRIN 81 MG TABLET EC PO SCH (08:58)
[2016-08-21] MEDS: ATENOLOL 50 MG TABLET PO SCH (08:58)
[2016-08-21] MEDS: SENNA/DOCUSATE TABLET PO SCH (08:59)
[2016-08-21] MEDS: RIFAMPIN 300 MG CAPSULE PO SCH (08:59)
[2016-08-21] MEDS: ENALAPRIL 5MG TABLET PO SCH (09:00)
[2016-08-21] MEDS: NYSTATIN TOPICAL POWDER 15GM TP SCH (09:01)
[2016-08-21] MEDS ORDERED: RIFA300C3 PO (13:20)
[2016-08-21 13:32] VITALS: BP 145/84
== END 2016-08-21 14:35 | disposition home or self-care (01) | DRG 901 ==
LOC: ED 15:51 → EDIP 16:50 → 4NOR 17:30 → UNDODISIN 08-19 16:35 → DCLOUNGE 08-21 14:15
PROC: 0JBC0ZZ Excision of Pelvic Region Subcutaneous Tissue and Fascia, Open Approach (ICD-10-PCS; 2016-08-09)
PROC: 07Q Lymphatic and Hemic Systems, Repair (ICD-10-PCS; principal; 2016-08-09 13:30)
PROC: 02HV33Z Insertion of Infusion Device into Superior Vena Cava, Percutaneous Approach (ICD-10-PCS; 2016-08-11)
PROC: B5181ZA Fluoroscopy of Superior Vena Cava using Low Osmolar Contrast, Guidance (ICD-10-PCS; 2016-08-11)
PROC: B548ZZA Ultrasonography of Superior Vena Cava, Guidance (ICD-10-PCS; 2016-08-11)
PROC: 3E10X8Z Irrigation of Skin and Mucous Membranes using Irrigating Substance (ICD-10-PCS; 2016-08-15)
PROC: 0JDC0ZZ Extraction of Pelvic Region Subcutaneous Tissue and Fascia, Open Approach (ICD-10-PCS; 2016-08-15)
DX: T81.31XA Disruption of external operation (surgical) wound, not elsewhere classified, initial encounter (principal); E43 Unspecified severe protein-calorie malnutrition; I77.71 Dissection of carotid artery; E87.1 Hypo-osmolality and hyponatremia; I10 Essential (primary) hypertension; B37.2 Candidiasis of skin and nail; D63.8 Anemia in other chronic diseases classified elsewhere; E11.65 Type 2 diabetes mellitus with hyperglycemia; E11.42 Type 2 diabetes mellitus with diabetic polyneuropathy; G43.909 Migraine, unspecified, not intractable, without status migrainosus; B95.62 Methicillin resistant Staphylococcus aureus infection as the cause of diseases classified elsewhere; I89.8 Other specified noninfective disorders of lymphatic vessels and lymph nodes; E11.51 Type 2 diabetes mellitus with diabetic peripheral angiopathy without gangrene; E66.9 Obesity, unspecified; E78.5 Hyperlipidemia, unspecified; Z68.34 Body mass index [BMI] 34.0-34.9, adult; Z79.899 Other long term (current) drug therapy; Z80.1 Family history of malignant neoplasm of trachea, bronchus and lung; Z82.49 Family history of ischemic heart disease and other diseases of the circulatory system; Z83.3 Family history of diabetes mellitus; Z86.718 Personal history of other venous thrombosis and embolism; Z86.73 Personal history of transient ischemic attack (TIA), and cerebral infarction without residual deficits; Z88.8 Allergy status to other drugs, medicaments and biological substances; Z95.820 Peripheral vascular angioplasty status with implants and grafts; Z91.018 Allergy to other foods
CPT/HCPCS: 36415; 36569; 76937; 77001; 80048; 80053; 81001; 82550; 82962; 83605; 83735; 84100; 85025; 85651; 86140; 87040; 87070; 87075; 87077; 87086; 87186; 87205; 96365; J0295; J0690; J0712; J0878; J1170; J1644; J1815; J1885; J2250; J2405; J2704; J2720; J3010; J3370; J3480; C1751; J0330; J2370; J7030; J7050; J7120

== ENCOUNTER → 2016-08-23 | Outpatient (CLI) | payer OTHER ==
[~2016-08-23] MED LIST changes: +DULA0.75 SQ; +OXYC5TAB3 PO; +RIFA300C3 PO
== END | disposition home or self-care (01) ==
LOC: WOUND 13:05
PROVIDERS: ATTEND Internal Medicine
DX: T81.31XD Disruption of external operation (surgical) wound, not elsewhere classified, subsequent encounter (principal); Z68.41 Body mass index [BMI] 40.0-44.9, adult; I10 Essential (primary) hypertension; E78.5 Hyperlipidemia, unspecified; E11.51 Type 2 diabetes mellitus with diabetic peripheral angiopathy without gangrene; Z86.718 Personal history of other venous thrombosis and embolism; Y83.8 Other surgical procedures as the cause of abnormal reaction of the patient, or of later complication, without mention of misadventure at the time of the procedure; Z87.891 Personal history of nicotine dependence
CPT/HCPCS: 97597; 99205; 99215

== ENCOUNTER → 2016-08-30 | Outpatient (CLI) | payer OTHER | END | disposition home or self-care (01) | LOC: WOUND 15:06 | PROVIDERS: ATTEND Internal Medicine | DX: T81.31XD Disruption of external operation (surgical) wound, not elsewhere classified, subsequent encounter (principal); E11.69 Type 2 diabetes mellitus with other specified complication; I10 Essential (primary) hypertension; I25.2 Old myocardial infarction; E78.5 Hyperlipidemia, unspecified; Z87.891 Personal history of nicotine dependence; Y83.8 Other surgical procedures as the cause of abnormal reaction of the patient, or of later complication, without mention of misadventure at the time of the procedure | CPT/HCPCS: 97597 ==

== ENCOUNTER → 2016-09-06 | Outpatient (CLI) | payer OTHER | END | disposition home or self-care (01) | LOC: WOUND 15:00 | PROVIDERS: ATTEND Internal Medicine | DX: T81.31XD Disruption of external operation (surgical) wound, not elsewhere classified, subsequent encounter (principal); I10 Essential (primary) hypertension; E78.5 Hyperlipidemia, unspecified; Z87.891 Personal history of nicotine dependence; E11.42 Type 2 diabetes mellitus with diabetic polyneuropathy; E11.51 Type 2 diabetes mellitus with diabetic peripheral angiopathy without gangrene; Z86.73 Personal history of transient ischemic attack (TIA), and cerebral infarction without residual deficits; Z86.718 Personal history of other venous thrombosis and embolism; Y83.8 Other surgical procedures as the cause of abnormal reaction of the patient, or of later complication, without mention of misadventure at the time of the procedure; Z68.41 Body mass index [BMI] 40.0-44.9, adult | CPT/HCPCS: 97597 ==

== ENCOUNTER → 2016-09-13 | Outpatient (CLI) | payer OTHER | END | disposition home or self-care (01) | LOC: WOUND 13:15 | PROVIDERS: ATTEND Internal Medicine | DX: T81.31XD Disruption of external operation (surgical) wound, not elsewhere classified, subsequent encounter (principal); I10 Essential (primary) hypertension; E78.5 Hyperlipidemia, unspecified; E11.51 Type 2 diabetes mellitus with diabetic peripheral angiopathy without gangrene; I25.2 Old myocardial infarction; E66.9 Obesity, unspecified; Z68.41 Body mass index [BMI] 40.0-44.9, adult; E11.65 Type 2 diabetes mellitus with hyperglycemia; Z86.73 Personal history of transient ischemic attack (TIA), and cerebral infarction without residual deficits; Z87.891 Personal history of nicotine dependence; Z86.718 Personal history of other venous thrombosis and embolism; Y83.8 Other surgical procedures as the cause of abnormal reaction of the patient, or of later complication, without mention of misadventure at the time of the procedure | CPT/HCPCS: 99213 ==